=== PATIENT | male | born 1975 | race African-American/Black ===

== ENCOUNTER 2018-07-09 19:29 | Emergency (ER) | payer OTHER ==
[2018-07-09 20:14] LABS: BEDSIDE GLUCOSE 454 MG/DL (70-105)
[2018-07-09 20:27] LABS: VENOUS BASE EXCESS -2.2 (-2.0-2.0); VENOUS HCO3 22.3 MEQ/L (23.0-27.0); VENOUS PARTIAL PRESSURE CO2 37.7 mmHg (38.0-50.0); VENOUS PARTIAL PRESSURE O2 73.3 mmHg (30.0-50.0); VENOUS PH 7.389 UNITS (7.330-7.430); VENOUS STANDARD HCO3 22.6 MEQ/L; VENOUS TOTAL CO2 23.4 MEQ/L (24.0-28.0)
[2018-07-09 20:30] LABS: KETONE, URINE AUTO RFX 1+ mg/dL (NEGATIVE); LEUKOCYTE ESTERASE UR AUTO RFX NEGATIVE (NEGATIVE); NITRITE, URINE AUTO RFX NEGATIVE (NEGATIVE); RBC, URINE AUTO RFX 2 /HPF (0-3); SPECIFIC GRAVITY UR AUTO RFX 1.033 (1.002-1.035); SQUAM EPITHELIAL CELL UR AURFX 0 /HPF (0-6); WBC, URINE AUTO RFX 3 /HPF (0-3)
[2018-07-09 20:31] LABS: BASO # 0.1 10^3/uL (0.0-0.2); BASO % 0.5 % (0.0-1.0); EOS # 0.2 10^3/uL (0.0-0.50); EOS % 1.4 % (0.0-3.0); HEMATOCRIT 43.9 % (42.0-52.0); HEMOGLOBIN 15.3 g/dl (13.5-17.5); IMMATURE GRANULOCYTE % 0.4 % (0-3.0); LYMPH # 3.5 10^3/uL (1.5-4.5); LYMPH % 32.1 % (24.0-44.0); MEAN CORPUSCULAR HEMOGLOBIN 28.1 pg (27.0-33.0); MEAN CORPUSCULAR HGB CONC 34.9 g/dl (32.0-36.5); MEAN CORPUSCULAR VOLUME 80.6 fl (80.0-96.0); MONO # 0.9 10^3/uL (0.0-0.8); MONO % 8.4 % (0.0-5.0); NEUTROPHILS # 6.3 10^3/uL (1.8-7.7); NEUTROPHILS % 57.2 % (36.0-66.0); PLATELET COUNT, AUTOMATED 356 10^3/uL (150-450); RED BLOOD COUNT 5.45 10^6/uL (4.30-6.10); RED CELL DISTRIBUTION WIDTH 12.8 % (11.5-14.5)
[2018-07-09 21:02] LABS: ANION GAP 13 MEQ/L (8-16); BLOOD UREA NITROGEN 17 MG/DL (7-18); CARBON DIOXIDE LEVEL 23 MEQ/L (21-32); CHLORIDE LEVEL 97 MEQ/L (98-107); GLOMERULAR FILTRATION RATE > 60.0 (>60); GLUCOSE, FASTING 401 MG/DL (70-100); POTASSIUM SERUM 3.9 MEQ/L (3.5-5.1); SODIUM LEVEL 133 MEQ/L (136-145)
[2018-07-09] MEDS: NS 1,000 ML IV ×2 (21:35→22:33)
[2018-07-09] MEDS: HumuLIN R (REGULAR) INSULIN (NovoLIN R) **100U/ML** PER UNIT IV ×2 (21:35→22:33)
[2018-07-09 21:43] LABS: VENOUS BASE EXCESS -2.5 (-2.0-2.0); VENOUS HCO3 23.4 MEQ/L (23.0-27.0); VENOUS O2 SATURATION 64.6 % (60.0-80.0); VENOUS PARTIAL PRESSURE CO2 44.2 mmHg (38.0-50.0); VENOUS PARTIAL PRESSURE O2 34.3 mmHg (30.0-50.0); VENOUS PH 7.341 UNITS (7.330-7.430); VENOUS STANDARD HCO3 21.6 MEQ/L; VENOUS TOTAL CO2 24.7 MEQ/L (24.0-28.0)
[2018-07-09 22:13] LABS: BEDSIDE GLUCOSE 361 MG/DL (70-105)
[2018-07-09 22:21] LABS: ESTIMATED AVERAGE GLUCOSE 298 MG/DL (60-110)
[2018-07-09 23:04] LABS: BEDSIDE GLUCOSE 254 MG/DL (70-105)
== END 2018-07-09 23:48 | disposition home or self-care (01) ==
LOC: M ED 19:29
DX: E11.65 Type 2 diabetes mellitus with hyperglycemia (principal); Z88.0 Allergy status to penicillin
CPT/HCPCS: 82803

== ENCOUNTER 2018-10-31 11:31 | Emergency (ER) | payer OTHER ==
[~2018-10-31] VITALS: Ht 180.3 cm; Wt 94.5 kg
[~2018-10-31 11:31] MED LIST: GLIP5TAB8 PO
[2018-10-31] MEDS ORDERED: FISH7.5C PO (11:40)
[2018-10-31] MEDS ORDERED: METF10004 PO (11:40)
[2018-10-31] MEDS ORDERED: ATOR1TAB21 PO (11:40)
[2018-10-31] MEDS ORDERED: NAPROXEN 250 MG TAB PO ONE (12:00)
[2018-10-31 12:12] LABS: HEMATOCRIT 46.4 % (42.0-52.0); HEMOGLOBIN 15.4 g/dl (13.5-17.5); MEAN CORPUSCULAR HEMOGLOBIN 27.5 pg (27.0-33.0); MEAN CORPUSCULAR HGB CONC 33.2 g/dl (32.0-36.5); MEAN CORPUSCULAR VOLUME 82.7 fl (80.0-96.0); PLATELET COUNT, AUTOMATED 320 10^3/uL (150-450); RED BLOOD COUNT 5.61 10^6/uL (4.30-6.10); WHITE BLOOD COUNT 7.8 10^3/uL (4.0-10.0)
[2018-10-31 12:41] LABS: BLOOD UREA NITROGEN 13 MG/DL (7-18); CARBON DIOXIDE LEVEL 26 MEQ/L (21-32); CHLORIDE LEVEL 105 MEQ/L (98-107); CREATININE FOR GFR 1.22 MG/DL (0.70-1.30); GLOMERULAR FILTRATION RATE > 60.0 (>60); GLUCOSE, FASTING 133 MG/DL (70-100); POTASSIUM SERUM 4.2 MEQ/L (3.5-5.1); SODIUM LEVEL 139 MEQ/L (136-145)
--- NOTE | 2018-10-31 13:22 | REP ---
RENAL ULTRASOUND: Real-time sonographic evaluation of the kidneys performed. Kidneys are normal in size and echotexture, right kidney measuring 1.4 x 5.3 x 6.2 cm and left kidney 11.0 x 5.2 x 5.1 cm. There is no hydronephrosis bilaterally. There may be a calculus in the mid left renal collecting system 7 mm in diameter. I see no renal mass. Urinary bladder is not distended and not evaluated. IMPRESSION: No hydronephrosis. Possible 7 mm stone in the mid left renal collecting system. Electronically Signed by Rodolfo Harkins MD 10/31/2018 01:33 P
[2018-10-31] MEDS ORDERED: NAPR-50 PO (13:31)
[2018-10-31 13:45] VITALS: BP 130/83
== END 2018-10-31 13:45 | disposition home or self-care (01) ==
LOC: M ED 11:31
DX: R10.9 Unspecified abdominal pain (principal); N20.0 Calculus of kidney; E78.5 Hyperlipidemia, unspecified